=== PATIENT | female | born 1955 | race Caucasian/White ===

== ENCOUNTER 2016-08-12 06:08 | Inpatient (IN) | payer BC ==
[2016-08-11 09:49] VITALS: BMI 27.5
[2016-08-12] VITALS (19 sets, daily range): BP systolic 101–153; BP diastolic 54–85; PULSE 67–91; RESP 11–24; Ht 180.3 cm; Wt 88.3 kg
[~2016-08-12] VITALS: Ht 180.3 cm; Wt 88.3 kg
[2016-08-12 06:51] LABS: BASOPHILS % 0.5 % (0.0-2.0); EOSINOPHILS # 0.3 10^3/ul (0.0-0.5); EOSINOPHILS % 3.2 % (0.0-7.0); HEMATOCRIT 38.9 % (37.0-47.0); HEMOGLOBIN 13.3 g/dl (12.0-16.0); LYMPHOCYTES # 2.3 10^3/ul (0.8-2.9); LYMPHOCYTES % 26.2 % (15.0-51.0); MEAN CORPUSCULAR HEMOGLOBIN 29.9 pg (29.0-33.0); MEAN CORPUSCULAR HGB CONC 34.3 g/dl (32.0-37.0); MEAN CORPUSCULAR VOLUME 87.2 fl (82.0-101.0); MEAN PLATELET VOLUME 7.4 fl (7.4-10.4); MONOCYTE # 0.8 10^3/ul (0.3-0.9); MONOCYTES % 9.2 % (0.0-11.0); NEUTROPHIL # 5.3 10^3/ul (1.6-7.5); NEUTROPHILS % 60.9 % (39.0-77.0); PLATELET COUNT 310 10^3/UL (140-440); RED BLOOD COUNT 4.46 10^6/ul (4.20-5.40); RED CELL DISTRIBUTION WIDTH 13.8 % (11.5-14.5); UNCORRECTED WBC 8.7 10^3/ul (4.8-10.8); WHITE BLOOD COUNT 8.7 10^3/ul (4.8-10.8)
[2016-08-12 06:57] LABS: CONDITION 1
[2016-08-12] MEDS ORDERED: SOD CHLORIDE 0.9% 1,000 ML IV SCH (07:00)
[2016-08-12] MEDS ORDERED: CEFAZOLIN 2 GM/50 ML (PMX) 50 ML IVPB SCH (07:00)
--- NOTE | 2016-08-12 07:11 | RADRPT ---
PROCEDURE: XR Chest. CLINICAL INDICATION: Preop TECHNIQUE: A single AP view of the chest was obtained. COMPARISON: No prior examination is available for comparison. FINDINGS: The lungs are hyperinflated with coarsening of the interstitial markings and increased lucency of th e upper lung zones. No focal airspace opacification, pleural effusion or pneumothorax is seen. The cardiomediastinal silhouette is within normal limits for size. Calcifications are seen within the a ortic arch. The osseous structures are unremarkable. IMPRESSION: 1. Findings suggesting emphysematous changes of the lungs. 2. Aortic atherosclerosis. RPTAT: HH .Gloria Carpio MD, MD Date Time Electronically viewed and signed by .Gloria Carpio MD, on 08/12/2016 07:10 .G/
[2016-08-12 07:15] LABS: INR 0.98; PARTIAL THROMBOPLASTIN TIME 30.3 Sec (25.0-35.0)
[2016-08-12 07:21] LABS: CALCIUM 10.2 mg/dl (8.4-10.2); CREATININE 0.75 mg/dl (0.44-1.00); POTASSIUM 3.5 mmol/L (3.5-5.1)
[2016-08-12] MEDS ORDERED: TIOT18CA INHALATION (07:28)
[2016-08-12] MEDS ORDERED: CALC600T5 PO (07:28)
[2016-08-12] MEDS ORDERED: HYD25 PO (07:28)
[2016-08-12] MEDS ORDERED: AMIT25TA9 PO (07:28)
[2016-08-12] MEDS ORDERED: AMLO-218 PO (07:28)
[2016-08-12] MEDS ORDERED: VIT D (07:28)
[2016-08-12] MEDS ORDERED: ADV25050 INHALATION (07:28)
[2016-08-12] MEDS ORDERED: ALBU18HF INHALATION (07:28)
[2016-08-12] MEDS ORDERED: ASPI81TA3 PO (07:28)
[2016-08-12] MEDS ORDERED: [UNRECOGNIZED DRUG - OTHER] OPHTHALMIC (07:31)
[2016-08-12] MEDS ORDERED: BUPIVACAINE 0.25% (MPF) 30 ML INJ ONE (07:47)
[2016-08-12] MEDS ORDERED: PROPOFOL 20 ML ONE (08:02)
[2016-08-12] MEDS ORDERED: ONDANSETRON 4 MG INJ ONE (08:02)
[2016-08-12] MEDS ORDERED: ROCURONIUM 50 MG INJ ONE (08:02)
[2016-08-12] MEDS ORDERED: MIDAZOLAM 1 MG/ML 2 ML INJ ONE (08:02)
[2016-08-12] MEDS ORDERED: CEFAZOLIN 1 GM INJ ONE (08:13)
[2016-08-12] MEDS ORDERED: HYDROmorphONE 2 MG/ML SYG ONE (08:36)
[2016-08-12] MEDS ORDERED: HYDROmorphONE (0.2 MG/ML) 10ML SYG IV PRN ×2 (09:00)
[2016-08-12] MEDS ORDERED: MEPERIDINE 25 MG INJ IV PRN (09:00)
[2016-08-12] MEDS ORDERED: ONDANSETRON 4 MG INJ IV PRN ×2 (09:00→14:00)
[2016-08-12] MEDS ORDERED: hydrALAzine 20 MG INJ IV PRN (09:00)
[2016-08-12] MEDS ORDERED: LABETALOL HCL 20MG INJ IV PRN (09:00)
[2016-08-12] MEDS ORDERED: METOCLOPRAMIDE 10 MG INJ IV PRN (09:00)
[2016-08-12] MEDS ORDERED: IPRATROPIUM (NEB) 0.5 MG/2.5 ML AMP HHN ONE (09:00)
[2016-08-12] MEDS ORDERED: DIPHENHYDRAMINE 50 MG INJ IV PRN (09:00)
[2016-08-12] MEDS ORDERED: LEVALBUTEROL (NEB) 0.63 MG/3 ML AMP HHN ONE (09:00)
[2016-08-12] MEDS ORDERED: BUPIVACAINE 0.25% (MPF) 30 ML INJ INJ ONE (09:24)
[2016-08-12] MEDS ORDERED: NEOSTIGMINE 3 MG/3 ML SYRINGE ONE (09:30)
[2016-08-12] MEDS ORDERED: GLYCOPYRROLATE 0.4 MG INJ ONE (09:30)
--- NOTE | 2016-08-12 09:46 | OPR ---
DATE OF OPERATION: 08/12/2016 INDICATION: This is a 61-year-old female with symptoms of goiter and pressure and also follicular c ells found on FNA. She requests total thyroidectomy. Risks, alternatives, benefits, and personnel were discussed with the patient. Potential complications including but not limited to recurrent lar yngeal nerve injury were discussed with the patient. The patient expressed understanding and consen ts to the operation. PREOPERATIVE DIAGNOSIS: Goiter and follicular lesion. POSTOPERATIVE DIAGNOSIS: Goiter and follicular lesion. OPERATION: Total thyroidectomy. SURGEON: Yonatan Wilson MD SPECIMEN: Total thyroid. COMPLICATIONS: None. ANESTHESIA: General. PROCEDURE: The patient was taken to the OR and prepped and draped in usual sterile fashion. Surgic al timeout was performed. IV antibiotics were given. Collar incision is made with a 15 blade. Dis section cautery was carried down through the platysmus. Superior and inferior platysmal flaps were created with dissection cautery. Straps were divided in the midline. Attention was paid to the rig ht thyroid. This area was dissected out. The middle thyroidal vein was ligated with handheld LigaS ure. The superior and inferior poles were mobilized and the right thyroid was mobilized medially pa sadi careful attention to avoid the recurrent laryngeal nerve. Dissection cautery was carried down. The isthmus was mobilized. The left lobe was just a remnant and was very small. This area was al so mobilized in the superior and inferior pole and medialized with attention to avoid the recurrent laryngeal nerve. The thyroid was then resected en bloc with a short single for right superior lobe, long single for right anterior lobe, and double long for the left lobe remnant. This was handed of f to the pathologist. The surgical site was irrigated with water and Valsalva maneuver up to 40 cm was performed. There was no evidence of bleeding. The strap muscles were reapproximated with inter rupted 3-0 Vicryl. The platysma was reapproximated with interrupted 3-0 Vicryl. The skin was close d using running 4-0 Monocryl. Local anesthesia was injected. Dry dressings were applied. Dictated By: YONATAN WIGGINS/LARISSA Conf#: [id number] DID#: [id number]
[2016-08-12] MEDS ORDERED: OXYCODONE/ACETAMINOPHEN (5/325) TAB PO PRN (10:00)
[2016-08-12] MEDS: HYDROmorphONE (0.2 MG/ML) 10ML SYG IV PRN ×3 (10:46→11:07)
--- NOTE | 2016-08-12 12:24 | RADRPT ---
Vent Rate: 92 bpm RR Interval: 0 msec HI Interval: 156 msec QRS Duration: 92 msec QT Interval: 390 msec QTC Interval: 482 msec P-R-T [place]: 70 - 65 - 74 degrees Normal sinus rhythm Normal EKG Electronically Signed By: Julian Kaur [id number]
[2016-08-12] MEDS ORDERED: ALBUTEROL HFA 8 GM INHALER INH SCH (14:00)
[2016-08-12] MEDS ORDERED: morphine 2 MG INJ IV PRN (14:00)
[2016-08-12] MEDS: LACTATED RINGER'S 1,000 ML IV SCH ×2 (14:06→19:35)
--- NOTE | 2016-08-12 14:32 | HP ---
Date/Time of Note Date/Time of Note DATE: 08/12/16 TIME: 14:30 Assessment/Plan VTE Prophylaxis VTE Prophylaxis Intervention: other Lines/Catheters IV Catheter Type (from Nrsg): Peripheral IV Assessment/Plan Chief Complaint/Hosp Course 1) thyroid mass - s/p removal - monitor 2) COPD - stable for now Problems: HPI/ROS Admit Date/Time Admit Date/Time Hx of Present Illness Patient with hypertension, COPD present for thyroid mass excision. Patient tolerated procedure and is here for post operative care. PMH/Family/Social Past Medical History COPD Medical History: hypertension Social History Alcohol Use: occasionally Smoking Status: Former smoker Exam/Review of Systems Vital Signs Vitals Vital Signs Date Time Temp Pulse Resp B/P Pulse Ox O2 Delivery O2 Flow Rate FiO2 08/12/16 14:08 Nasal Cannula 3.0 08/12/16 12:11 98.2 89 16 135/60 90 Exam Head: atraumatic, normocephalic Neck: supple Respiratory: clear to auscultation Cardiovascular: regular rate and rhythm Gastrointestinal: non-tender, soft Genitourinary - Male: nl penis Labs Result Diagram: 08/12/16 0641 08/12/16 0641 Medications Medications Current Medications Cefazolin Sodium/ Dextrose 50 ml @ 100 mls/hr PREOP IVPB ; Start 08/12/16 at 07: 00; Stop 08/12/16 at 15:00 Cefazolin Sodium/ Dextrose (Ancef 2 Gm/50 ml (Pmx)) 50 ml @ 100 mls/hr Q8H IVPB ; Start 08/12/16 at 16:00; Stop 08/13/16 at 15:59 Morphine Sulfate (morphine) 2 mg Q2H PRN IV PAIN LEVEL 6-10; Start 08/12/16 at 10:00 Oxycodone/ Acetaminophen 1 tab 1 tab Q6H PRN PO PAIN LEVEL 6-10; Start 08/12/16 at 10:00 Lactated Ringer's (Lr) 1,000 ml @ 100 mls/hr Q10H IV Last administered on t 14:06; Admin Dose 100 MLS/HR; Start 08/12/16 at 09:35 Heparin Sodium (Porcine) (Heparin (5000 Units/0.5 ml)) 5,000 unit Q8 SC ; Start 1/7/17 at 06:00 Albuterol (Ventolin Hfa) 2 puff Q4H INH ; Start 08/12/16 at 14:00 Amitriptyline HCl (Elavil) 25 mg QHS PO ; Start 08/12/16 at 21:00 Amlodipine Besylate (Norvasc) 10 mg DAILY PO ; Start 08/13/16 at 09:00 Aspirin (Aspirin) 81 mg DAILY PO ; Start 08/13/16 at 09:00 Hydrochlorothiazide (Hydrochlorothiazide) 25 mg DAILY PO ; Start 08/13/16 at 09: 00 Salmeterol Xinafoate/ Fluticasone (Advair 250/50 Diskus) 1 inh BID INH ; Start 08/12/16 at 21:00 Calcium Carbonate (Tums) 500 mg BID PO ; Start 08/12/16 at 21:00 Latanoprost (Xalatan) 1 drop HS BOTH EYES ; Start 08/12/16 at 21:00 Cholecalciferol (Vitamin D) 1,000 unit DAILY PO ; Start 08/13/16 at 09:00 Morphine Sulfate (morphine) 2 mg Q4H PRN IV pain; Start 08/12/16 at 14:00 Ondansetron HCl (Zofran Inj) 4 mg Q6H PRN IV NAUSEA AND/OR VOMITING; Start 08/12 at 14:00 ISAAC CHAND Aug 12, 2016 14:32
[2016-08-12] MEDS: morphine 2 MG INJ IV PRN ×2 (15:21→19:51)
[2016-08-12] MEDS ORDERED: ALBUTEROL HFA 8 GM INHALER INH PRN (18:00)
[2016-08-12] MEDS: CEFAZOLIN 2 GM/50 ML (PMX) 50 ML IVPB SCH (19:00)
[2016-08-12] MEDS ORDERED: LATANOPROST 0.005% 2.5 ML OPH BOTH EYES SCH (21:00)
[2016-08-12] MEDS: CALCIUM CARBONATE 500 MG CHEW TAB PO SCH (21:00)
[2016-08-12] MEDS ORDERED: AMITRIPTYLINE 25 MG TAB PO SCH (21:00)
[2016-08-12] MEDS ORDERED: TIOTROPIUM 18 MCG CAPSULE INHA DEV INH SCH (21:00)
[2016-08-12] MEDS: SALMETEROL/FLUTICASONE 250/50 INHA INH SCH (22:30)
[2016-08-13] MEDS: LACTATED RINGER'S 1,000 ML IV SCH ×2 (01:40→13:31)
[2016-08-13] MEDS: CEFAZOLIN 2 GM/50 ML (PMX) 50 ML IVPB SCH ×2 (01:43→08:00)
[2016-08-13] MEDS: morphine 2 MG INJ IV PRN (05:52)
[2016-08-13] MEDS: HEPARIN 5,000 UNIT/0.5 ML SYG SC SCH ×2 (06:03→14:46)
[2016-08-13 06:26] LABS: BASOPHILS % 0.6 % (0.0-2.0); EOSINOPHILS # 0.2 10^3/ul (0.0-0.5); EOSINOPHILS % 2.9 % (0.0-7.0); HEMATOCRIT 33.6 % (37.0-47.0); HEMOGLOBIN 11.5 g/dl (12.0-16.0); LYMPHOCYTES # 1.7 10^3/ul (0.8-2.9); LYMPHOCYTES % 22.9 % (15.0-51.0); MEAN CORPUSCULAR HGB CONC 34.1 g/dl (32.0-37.0); MEAN CORPUSCULAR VOLUME 87.9 fl (82.0-101.0); MEAN PLATELET VOLUME 7.7 fl (7.4-10.4); MONOCYTE # 0.8 10^3/ul (0.3-0.9); MONOCYTES % 10.5 % (0.0-11.0); NEUTROPHIL # 4.6 10^3/ul (1.6-7.5); NEUTROPHILS % 63.1 % (39.0-77.0); PLATELET COUNT 236 10^3/UL (140-440); RED BLOOD COUNT 3.82 10^6/ul (4.20-5.40); RED CELL DISTRIBUTION WIDTH 14.2 % (11.5-14.5); UNCORRECTED WBC 7.3 10^3/ul (4.8-10.8); WHITE BLOOD COUNT 7.3 10^3/ul (4.8-10.8)
[2016-08-13 06:40] LABS: CONDITION 1
[2016-08-13 06:56] LABS: ALBUMIN 3.6 g/dl (3.3-4.9); POTASSIUM 3.4 mmol/L (3.5-5.1)
[2016-08-13 06:58] LABS: CREATININE 0.77 mg/dl (0.44-1.00)
[2016-08-13 06:59] LABS: ALBUMIN/GLOBULIN RATIO 1.33; BILIRUBIN,INDIRECT 0.2 mg/dl (0-1.1); BILIRUBIN,TOTAL 0.2 mg/dl (0.2-1.3); TOTAL PROTEIN 6.3 g/dl (6.1-8.1)
[2016-08-13 07:00] LABS: CALCIUM 9.1 mg/dl (8.4-10.2)
[2016-08-13 07:39] VITALS: BP 121/57; RESP 20
[2016-08-13] MEDS ORDERED: CHOLECALCIFEROL 1,000 UNIT TAB PO SCH (09:00)
[2016-08-13] MEDS: CALCIUM CARBONATE 500 MG CHEW TAB PO SCH (09:00)
[2016-08-13] MEDS ORDERED: HYDROCHLOROTHIAZIDE 25 MG TAB PO SCH (09:00)
[2016-08-13] MEDS ORDERED: ASPIRIN 81 MG TAB PO SCH (09:00)
[2016-08-13] MEDS ORDERED: AMLODIPINE 10 MG TAB PO SCH (09:00)
[2016-08-13] MEDS: SALMETEROL/FLUTICASONE 250/50 INHA INH SCH (09:07)
[2016-08-13] MEDS ORDERED: PERCOCET PO (11:21)
--- NOTE | 2016-08-13 11:23 | DS ---
Date/Time of Note Date/Time of Note DATE: 08/13/16 TIME: 11:22 Discharge Summary Admission/Discharge Info Admit Date/Time Aug 12, 2016 at 09:39 Discharge Date/Time 08/14/16 Final Diagnosis 1) thyroid mass Consults surgery Procedures thyroidectomy Hx of Present Illness Patient with hypertension, COPD present for thyroid mass excision. Patient tolerated procedure and is here for post operative care. Hospital Course Patient comes in with thyroid mass for thyroidectomy. Patient tolerated the procedure and when cleared by surgery she was sent home. 1) thyroid mass - s/p removal - monitor 2) COPD - stable for now Home Meds Reported Medications [Lantoprosr] No Conflict Check, 1 OPHTHALMIC DAILY 08/12/16 Albuterol Sulfate* (Ventolin HFA*) 18 Gm Hfa.aer.ad, 2 PUFF INHALATION Q4H, #1 INHALER 90 MCG NEEDED 08/12/16 [Vit D] No Conflict Check, 1000 DAILY 08/12/16 Calcium Carbonate (CALCIUM) 600 Mg Tablet, 400 MG PO BID, TAB 08/12/16 Tiotropium [place]* (Spiriva*) 18 Mcg Cap.w.dev, 1 CAP INHALATION DAILY, #30 CAP 08/12/16 Salmeterol Xinaf/Fluticasone* (Advair*) 250-50 Diskus Inhaler, 1 INH INHALATION BID, #1 INHALER 08/12/16 Amitriptyline Hcl* (Amitriptyline Hcl*) 25 Mg Tablet, 25 MG PO QHS, #30 TAB 08/12/16 Hydrochlorothiazide* (Hydrochlorothiazide*) 25 Mg Tab, 25 MG PO DAILY, #30 TAB 08/12/16 Aspirin* (Aspirin* Chew) 81 Mg Tab.chew, 81 MG PO DAILY, TAB.CHEW 08/12/16 Amlodipine Besylate* (Norvasc*) 10 Mg Tablet, 10 MG PO DAILY, TAB 08/12/16 Pending Labs Laboratory Tests Test 08/13/16 05:03 Alanine Aminotransferase (ALT/SGPT) 45IU/L (13-69) Albumin 3.6g/dl (3.3-4.9) Albumin/Globulin Ratio 1.33 Alkaline Phosphatase 100IU/L (42-121) Anion Gap 13 (8-16) Aspartate Amino Transf (AST/SGOT) 33IU/L (15-46) Basophils # 0.010^3/ul (0.0-0.1) Basophils % 0.6% (0.0-2.0) Blood Urea Nitrogen 7mg/dl (7-20) Calcium Level 9.1mg/dl (8.4-10.2) Carbon Dioxide Level 36mmol/L (21-31) Chloride Level 98mmol/L (97-110) Creatinine 0.77mg/dl (0.44-1.00) Direct Bilirubin 0.00mg/dl (0.00-0.20) Eosinophils # 0.210^3/ul (0.0-0.5) Eosinophils % 2.9% (0.0-7.0) Globulin 2.70g/dl (1.3-3.2) Glucose Level 94mg/dl (70-220) Hematocrit 33.6% (37.0-47.0) Hemoglobin 11.5g/dl (12.0-16.0) Indirect Bilirubin 0.2mg/dl (0-1.1) Lymphocytes # 1.710^3/ul (0.8-2.9) Lymphocytes % 22.9% (15.0-51.0) Mean Corpuscular Hemoglobin 30.0pg (29.0-33.0) Mean Corpuscular Hemoglobin Concent 34.1g/dl (32.0-37.0) Mean Corpuscular Volume 87.9fl (82.0-101.0) Mean Platelet Volume 7.7fl (7.4-10.4) Monocytes # 0.810^3/ul (0.3-0.9) Monocytes % 10.5% (0.0-11.0) Neutrophils # 4.610^3/ul (1.6-7.5) Neutrophils % 63.1% (39.0-77.0) Nucleated Red Blood Cells # 0.010^3/ul (0.0-0.0) Nucleated Red Blood Cells % 0.0/100WBC (0.0-0.0) Platelet Count 64572^3/UL (140-440) Potassium Level 3.4mmol/L (3.5-5.1) Red Blood Count 3.8210^6/ul (4.20-5.40) Red Cell Distribution Width 14.2% (11.5-14.5) Sodium Level 144mmol/L (135-144) Total Bilirubin 0.2mg/dl (0.2-1.3) Total Protein 6.3g/dl (6.1-8.1) White Blood Count 7.310^3/ul (4.8-10.8) ISAAC CHAND Aug 13, 2016 11:23
== END 2016-08-13 16:25 | disposition home or self-care (01) | DRG 627 ==
LOC: SDS 06:08 → EDSTATUS 08:00 → SDS 09:39 → MS2 09:39
PROVIDERS: ADMIT Internal Medicine; ATTEND Surgery
PROC: 0GTH0ZZ Resection of Right Thyroid Gland Lobe, Open Approach (ICD-10-PCS; principal; 2016-08-12 08:00)
DX: C73 Malignant neoplasm of thyroid gland (principal); I10 Essential (primary) hypertension; J44.9 Chronic obstructive pulmonary disease, unspecified; Z87.891 Personal history of nicotine dependence; Z79.82 Long term (current) use of aspirin
CPT/HCPCS: 71010; 80048; 80053; 85025; 85610; 85730; 88307; 93005; 94664; J0690; J1170; J2250; J2270; J2405; J2710; J7030; J7120

== ENCOUNTER → 2017-03-16 | Outpatient (CLI) | payer BC ==
[~2017-03-16] MED LIST: ADV25050 INHALATION; ALBU18HF INHALATION; AMIT25TA9 PO; AMLO-218 PO; ASPI81TA3 PO; CALC600T5 PO; HYD25 PO; PERCOCET PO; TIOT18CA INHALATION; VIT D; [UNRECOGNIZED DRUG - OTHER] OPHTHALMIC
--- NOTE | 2017-03-16 16:05 | RADRPT ---
PROCEDURE: Whole body I-131 post-treatment scan CLINICAL INDICATION: 62 -year-old patient with thyroid cancer, status post total thyroidectomy, an d I - 131 ablation. TECHNIQUE: Following the oral administration of 103.9 mCi of I-131, whole body anterior and security incident response engineer ior planar images were obtained along with multiple spot views of the neck and chest 7 days later. COMPARISON: November 10, 2016. FINDINGS: Focal areas of intensely increased radiotracer concentration are seen in the mid lower anterior neck , more prominent on the left, and in the left upper neck, which are compatible with iodine-avid tiss ue. No other abnormal areas of I - 131 accumulation are seen in the study, including the remaining head and neck region, chest, abdomen, pelvis and visualized portions of the upper and lower extremities b ilaterally. There is evidence of physiologic uptake in the salivary glands, liver, bowel and bladder. IMPRESSION: 1. Focal areas of intensely increased radiotracer concentration in the mid lower anterior neck, gre ater on the left, and in the left upper neck, most consistent with iodine-avid tissue. 2. No other abnormal areas of increased I - 131 accumulation. RPTAT: HH .Aminah Snowden MD, MD Date Time Electronically viewed and signed by .Aminah Snowden MD, MD on 03/16/2017 16:04 .L/
== END | disposition home or self-care (01) ==
LOC: NUC 14:54
PROVIDERS: ATTEND Specialist
DX: C73 Malignant neoplasm of thyroid gland (principal)
CPT/HCPCS: 78018

== ENCOUNTER → 2018-06-13 | Outpatient (CLI) | END | disposition home or self-care (01) ==